=== PATIENT | female | born 1965 | race Caucasian/White ===

== ENCOUNTER 2020-11-13 07:21 | Emergency (ER) | payer BC ==
[~2020-11-13] VITALS: Ht 170.2 cm; Wt 81.4 kg
--- NOTE | 2020-11-13 07:33 | NUR ---
TRIAGE NOTE: EKG TAKEN IN TRIAGE BY EDT.
[2020-11-13] MEDS ORDERED: FAMOTIDINE 20 MG/2 ML IVPush ONE (08:00)
[2020-11-13] MEDS ORDERED: SODIUM CHLORIDE 0.9% 1,000ML IVBOLUS ONE (08:00)
[2020-11-13] MEDS ORDERED: MAALOX/HYOSCYAMINE/LIDOCAINE 45 ML BTL PO ONE (08:00)
[2020-11-13] MEDS ORDERED: SODIUM CHLORIDE FLUSH 10ML SYR IVF ONE (08:00)
[2020-11-13] MEDS ORDERED: ONDANSETRON 2MG/ML, 2ML IVPush ONE (08:00)
[2020-11-13 08:30] LABS: BASOPHILS % (AUTO) 1 % (0-1); EOSINOPHILS % (AUTO) 0 % (1-7); LYMPHOCYTES % (AUTO) 9 % (22-44); MEAN CORPUSCULAR HEMOGLOBIN 25.7 pg (27.0-34.8); MEAN CORPUSCULAR HGB CONC 31.6 g/dL (32.4-35.8); MEAN PLATELET VOLUME 8.4 fL (7.4-10.4); MONOCYTES % (AUTO) 3 % (2-9); NEUTROPHILS % (AUTO) 87 % (42-75); PLATELET COUNT 275 x10^3/uL (130-400); RED BLOOD COUNT 5.12 x10^6/uL (3.82-5.3); RED CELL DISTRIBUTION WIDTH 27.9 % (9.6-15.2)
[2020-11-13 08:38] LABS: CHLORIDE 108 mmol/L (98-107)
[2020-11-13 08:47] LABS: ALANINE AMINOTRANSFERASE 19 U/L (12-78); ALBUMIN 4.4 g/dL (3.4-5.0); ALKALINE PHOSPHATASE 56 U/L (45-117); ANION GAP 5 mmol/L (5-15); BILIRUBIN,TOTAL 0.5 mg/dL (0.2-1.0); CALCIUM 9.8 mg/dL (8.5-10.1); CREATININE 1.06 mg/dL (0.55-1.02); TOTAL PROTEIN 8.5 g/dL (6.4-8.2); TROPONIN I < 0.015 ng/mL (0.000-0.045)
--- NOTE | 2020-11-13 08:55 | NUR ---
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
[2020-11-13 09:04] LABS: MD SCAN
[2020-11-13] MEDS ORDERED: ONDANSETRON 2MG/ML, 2ML ONE (09:05)
[2020-11-13] MEDS ORDERED: MAALOX/HYOSCYAMINE/LIDOCAINE 45 ML BTL ONE (09:06)
[2020-11-13] MEDS ORDERED: FAMOTIDINE 20 MG/2 ML ONE (09:06)
--- NOTE | 2020-11-13 09:47 | NUR ---
THIS IS A 55 YR OLD FEMALE WITH HX OF IRON DEFECIENT ANEMIA. PT WAS ADVISED TO TAKE HER IRON AND VITAMIN C SUPPLEMENTS ON A EMPTY STOMACH AND STATES THIS IS WHEN HER SYMPTOMS STARTED.
[2020-11-13 09:52] VITALS: BP 141/82
== END 2020-11-13 10:40 | disposition home or self-care (01) ==
LOC: ED 10:02
DX: K21.00 Gastro-esophageal reflux disease with esophagitis, without bleeding (principal); R10.13 Epigastric pain; R11.2 Nausea with vomiting, unspecified
CPT/HCPCS: 36415; 76700; 80053; 83690; 84484; 85025; 93005; 96361; 96374; 96375; 99285; J2405; J7030